=== PATIENT | male | born 1985 | race Caucasian/White ===

== ENCOUNTER 2019-03-21 10:38 | Emergency (ER) | payer MEDICAID ==
[~2019-03-21] VITALS: Ht 188 cm; Wt 73.6 kg
[2019-03-21 10:44] VITALS: BP 138/92
[2019-03-21] MEDS ORDERED: IBUPROFEN 800 MG TABLET ONE (11:05)
[2019-03-21] MEDS ORDERED: IBUPROFEN 800 MG TABLET PO ONE (11:30)
== END 2019-03-21 11:14 ==
LOC: ED 11:08
DX: K08.89 Other specified disorders of teeth and supporting structures (principal); F17.200 Nicotine dependence, unspecified, uncomplicated
CPT/HCPCS: 99283

== ENCOUNTER 2021-04-28 07:19 | Emergency (ER) | payer SELFPAY ==
[~2021-04-28] VITALS: Ht 188 cm; Wt 86.0 kg
[2021-04-28 07:23] VITALS: BP 162/104
--- NOTE | 2021-04-28 07:38 | NUR ---
pt ambulates from triage to room with steady gait.
[2021-04-28] MEDS ORDERED: IBUPROFEN 600 MG TABLET ONE (08:27)
[2021-04-28] MEDS ORDERED: IBUPROFEN 600 MG TABLET PO ONE (08:30)
--- NOTE | 2021-04-28 08:33 | NUR ---
pt d/c with d/c summary and scritps. all questions answered. pt medicated per mar prior to d/c. pt ambulates to registration desk with steady gait for d/c home and denies any other needs pertaining to this visit.
== END 2021-04-28 08:37 ==
LOC: ED 07:38
DX: K02.9 Dental caries, unspecified (principal); K08.89 Other specified disorders of teeth and supporting structures
CPT/HCPCS: 99283